=== PATIENT | male | born 1990 | race American Indian/Alaskan Native ===

== ENCOUNTER 2016-08-23 01:06 | Observation (INO) | payer OTHER ==
[2016-08-23] MEDS ORDERED: Vancomycin 1gm in NS 250ml 1 GM/250 ML BAG IVPB STA (05:00)
[2016-08-23] MEDS ORDERED: Oxycodone/Acetaminophen 5/325 mg Tab PO ONE (05:00)
[2016-08-23] MEDS ORDERED: Piperacillin/Tazobact 3.375 gm 100 ML IVPB STA (05:00)
--- NOTE | 2016-08-23 20:30 | CP.PCM.HP ---
<MiltonWilliam - Last Filed: 08/23/16 20:27> History of Present Illness - History of Present Illness History of Present Illness: 26 y/o M with no significant PMH presents to the ED with a 3 day history of right sided chest pain. 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 Pt noticed he had pain on the right side on the lower right chest wall. The pain began to get worse and the patient noticed the pain extending into his right axilla. Pain is made worse by anything touching the site, including his clothes. Pt reports having subjective fever and chills over the last day. He took advil at home for the pain, but it only helped for a few hours before the pain came back. Pt states he was squeezing on the site and it began to express a small amount of pus earlier today. Denies trauma, SOB, N/V/D, headaches, constipation, dysuria, palpitations. PMH: None Surgical Hx: None Family Hx: DM, HTN, Sickle cell trait Social Hx: Denies tobacco and illicit drug use. Occasional alcohol use. Allergies: NKDA Medication: None Present on Admission - Present on Admission Any Indicators Present on Admission: No Review of Systems - Constitutional Constitutional: Chills, Fever. absent: Fatigue, Weakness - EENT Eyes: absent: Blurred Vision, Change in Vision Nose/Mouth/Throat: absent: Nasal Congestion, Nasal Discharge - Cardiovascular Cardiovascular: absent: Chest Pain, Irregular Heart Rhythm - Respiratory Respiratory: absent: Cough, Dyspnea - Gastrointestinal Gastrointestinal: Abdominal Pain. absent: Diarrhea, Vomiting - Genitourinary Genitourinary: absent: Dysuria, Hematuria - Integumentary Integumentary: New Lesions, Skin Pain. absent: Rash - Neurological Neurological: absent: Dizziness, Syncope, Tingling - Hematologic/Lymphatic Hematologic: absent: Easy Bleeding, Easy Bruising Physical Exam - Constitutional Appears: Well, No Acute Distress - Head Exam Head Exam: ATRAUMATIC, NORMAL INSPECTION, NORMOCEPHALIC - Eye Exam Eye Exam: EOMI, Normal appearance - ENT Exam ENT Exam: Mucous Membranes Moist, Normal Exam - Neck Exam Neck exam: Positive for: Normal Inspection. Negative for: Lymphadenopathy - Respiratory Exam Respiratory Exam: Clear to Auscultation Bilateral, NORMAL BREATHING PATTERN. absent: Rales, Rhonchi, Wheezes - Cardiovascular Exam Cardiovascular Exam: RRR, +S1, +S2 - GI/Abdominal Exam GI & Abdominal Exam: Normal Bowel Sounds, Soft Additional comments: Red lesion on the right upper quadrant with erythema extending into the right chest wall and axillary region. No drainage from the erythema - Extremities Exam Extremities exam: Negative for: calf tenderness, pedal edema - Neurological Exam Neurological exam: Alert, CN II-XII Intact, Oriented x3 - Psychiatric Exam Psychiatric exam: Normal Affect, Normal Mood - Skin Skin Exam: Erythema, Intact, Warm Assessment & Plan - Assessment and Plan (Free Text) Plan: 26 y/o M with no significant PMH presents with right abdominal wall abscess and cellulitis. Pt will be admitted to med/surg and placed on empiric abx at this time. Surgery and ID will be consulted. 1. Right abdominal wall abscess and cellulitis Vancomycin and Zoysn Morphine 1 mg q4h Surgery consulted, Dr. Conrad ID consulted, Dr. Nelson 2. PPX Protonix Seen, reviewed, and discussed with attending Milton, PGY-1 <Codi Morgan - Last Filed: 08/24/16 06:45> Attending/Attestation - Attestation I have personally seen and examined this patient.: Yes I have fully participated in the care of the patient.: Yes I have reviewed all pertinent clinical information: Yes Notes (Text): 08/24/16 06:45 Agree with history , physcical examination, assessment and plan.
[2016-08-23] MEDS ORDERED: Morphine 2 mg/ml ISec SC PRN (22:07)
[2016-08-23] MEDS ORDERED: Piperacillin/Tazobact 3.375 gm 100 ML IVPB SCH (22:15)
[2016-08-23] MEDS ORDERED: Sodium Chloride 0.9% 1,000 ML IV SCH (22:15)
[2016-08-23] MEDS ORDERED: Vancomycin 1gm in NS 250ml 1 GM/250 ML BAG IVPB SCH (22:15)
--- NOTE | 2016-08-24 08:17 | CON ---
DATE: 08/23/2016 LOCATION: 517, bed 2, [facility] The patient was seen earlier this morning. REASON FOR CONSULTATION: Abdominal wall abscess. HISTORY OF PRESENT ILLNESS: We have a 26-year-old male with no significant past medical history who comes in complaining of increasing pain along the right side of his abdominal wall. Apparently, ther e was a lesion there that started about a week ago which looked like a pimple, but eventually started getting bigger over the week, and has worsened, and has caused increased pain over the area, as well as radiation of pain even to the right chest area. The patient denies any insect or tick bites, as far as he knows. He denies animal contacts. Does not have any pets at home. He denies specific tra lorena to the area. He denies any travel outside of [place] in the past 3 months. He has not had an y trips to wooded areas. Has not been to beaches or any other bodies of water. He denies fever or c hills. No headache or dizziness. No sore throat. No dysphagia, no odynophagia. No rhinorrhea, no cough. No shortness of breath or chest pain. Aside from the abdominal wall pain, no other parts of the abdomen are painful. No diarrhea. No hematuria, no dysuria, no penile discharge. REVIEW OF SYSTEMS: Is as per history of present illness. PAST MEDICAL HISTORY: The patient does not have any past medical history. FAMILY MEDICAL HISTORY: Is noncontributory. PERSONAL AND SOCIAL HISTORY: The patient denies alcohol abuse or illicit drug use. PHYSICAL EXAMINATION: VITAL SIGNS: The patient is currently afebrile. Heart rate of 90, respiratory rate of 18. HEAD AND NECK: Normocephalic, atraumatic. No cervical lymphadenopathy. No meningismus present. CHEST: Decreased breath sounds bilaterally. No rales noted. HEART: S1 and S2 are normal. ABDOMEN: It is soft. There is about a 4 x 4 cm area on the right side of the abdominal wall with no kiel erythema and some very minute purulent discharge noted, but it is very scant in nature. No blood noted. It is very tender to touch. EXTREMITIES: No peripheral edema noted. Good pulses bilaterally on the distal extremities. LABORATORY DATA: Unfortunately, we are unable to review the labs on the patient because the computer systems and the EMR are down. ASSESSMENT: We have a 26-year-old male with no significant past medical history presenting with prob able abdominal wall abscess, skin structure infection. PLAN: The patient has been started on vancomycin and Zosyn. We will continue this. Pending surgica l recommendations for possible incision and drainage, we have recommended warm compresses for now, an d will re-evaluate tomorrow to see if there is more significant collection of the area so that they c an do incision and drainage. We will also order an HIV test for this patient because of his age, and we will make further recommendations depending on the test results, which will include wound culture s once I and D is done, as well as blood cultures. Damian Elizalde M.D. cc: [id number] TT: 08/23/2016 18:29:32 Confirmation # [id number] Dictation # [id number] bettie
[2016-08-24 16:59] LABS: HEMATOCRIT 40.5 % (42.0-52.0); MEAN CELL VOLUME 83.9 fL (80.0-105.0); MEAN CORPUSCULAR HEMOGLOBIN 28.8 pg (25.0-35.0); MEAN CORPUSCULAR HGB CONC 34.3 g/dl (31.0-37.0); MEAN PLATELET VOLUME 10.1 fl (7.0-11.0); RED CELL DISTRIBUTION WIDTH 13.9 % (11.5-14.5); WHITE BLOOD COUNT 7.9 10^3/ul (4.5-11.0)
[2016-08-27 01:36] LABS: ALB/GLOB RATIO 1.1 (1.1-1.8); ALKALINE PHOSPHATASE 69 U/L (38-133); ALT/SGPT 28 U/L (7-56); AST/SGOT 25 U/L (15-59); BILIRUBIN,TOTAL 0.8 mg/dL (0.2-1.3); BLOOD UREA NITROGEN 10 mg/dL (7-21); CALCIUM 9.3 mg/dL (8.4-10.5); CARBON DIOXIDE 31 mmol/L (21-33); CHLORIDE 100 mmol/L (98-107); GFR AFRICAN-AMERICAN > 60; GLUCOSE,RANDOM 94 mg/dL (70-110); SODIUM 140 mmol/L (132-148); TOTAL PROTEIN 8.3 g/dL (5.8-8.3)
--- NOTE | 2016-09-04 15:06 | CP.PCM.DIS ---
<Baljit Montez - Last Filed: 09/04/16 14:58> Provider - Provider Date of Admission: 08/23/16 04:55 Attending physician: Jacques Hercules MD Consults: ID: [email or web address] Surgery: [place] Time Spent in preparation of Discharge (in minutes): 45 Hospital Course - Lab Results Lab Results: Micro Results 08/23/16 05:45 Blood-Venous Blood Culture - Final NO GROWTH AFTER 5 DAYS 08/23/16 05:45 Blood-Venous Gram Stain - Final TEST NOT PERFORMED 08/23/16 05:45 Blood-Venous Blood Culture - Final NO GROWTH AFTER 5 DAYS 08/23/16 05:45 Blood-Venous Gram Stain - Final TEST NOT PERFORMED Most Recent Lab Values WBC 7.9 10^3/ul (4.5-11.0) 08/23/16 05:45 RBC 4.83 10^6/uL (3.5-6.1) 08/23/16 05:45 Hgb 13.9 gm/dL (14.0-18.0) L 08/23/16 05:45 Hct 40.5 % (42.0-52.0) L 08/23/16 05:45 MCV 83.9 fL (80.0-105.0) 08/23/16 05:45 MCH 28.8 pg (25.0-35.0) 08/23/16 05:45 MCHC 34.3 g/dl (31.0-37.0) 08/23/16 05:45 RDW 13.9 % (11.5-14.5) 08/23/16 05:45 Plt Count 262 10^3/uL (120.0-450.0) 08/23/16 05:45 MPV 10.1 fl (7.0-11.0) 08/23/16 05:45 Sodium 140 mmol/L (132-148) 08/23/16 05:45 Potassium 4.0 mmol/L (3.6-5.0) 08/23/16 05:45 Chloride 100 mmol/L (98-107) 08/23/16 05:45 Carbon Dioxide 31 mmol/L (21-33) 08/23/16 05:45 Anion Gap 13 (10-20) 08/23/16 05:45 BUN 10 mg/dL (7-21) 08/23/16 05:45 Creatinine 1.0 mg/dL (0.5-1.4) 08/23/16 05:45 Est GFR ( Amer) > 60 08/23/16 05:45 Est GFR (Non-Af Amer) > 60 08/23/16 05:45 Random Glucose 94 mg/dL (70-110) 08/23/16 05:45 Calcium 9.3 mg/dL (8.4-10.5) 08/23/16 05:45 Total Bilirubin 0.8 mg/dL (0.2-1.3) 08/23/16 05:45 AST 25 U/L (15-59) 08/23/16 05:45 ALT 28 U/L (7-56) 08/23/16 05:45 Alkaline Phosphatase 69 U/L (38-133) 08/23/16 05:45 Total Protein 8.3 g/dL (5.8-8.3) 08/23/16 05:45 Albumin 4.3 g/dL (3.0-4.8) 08/23/16 05:45 Globulin 4.0 gm/dL 08/23/16 05:45 Albumin/Globulin Ratio 1.1 (1.1-1.8) 08/23/16 05:45 - Hospital Course Hospital Course: Upon Admission: 26yo M with no significant PMHx here for evaluation of right abdominal wall abscess and cellulitis. Patient was afebrile, no leukocytosis. 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 Surgery was consulted and recommended warm compress and out -patient follow up. No plans for any acute surgical intervention. ID was consulted who recommended discharge on PO abx and close out-patient follow up. Patient understands and agrees with plan. 1. Abdominal wall abscess/cellulitis; PO abx Upon Discharge: Patient was cleared for discharge as per Dr. Hercules 1. Follow up with your PMD in 3 days 2. Follow up with Dr. Conrad, surgery, in 1 week. Call for appointment 3. Take oral antibiotics as directed to completion. Discharge Exam - Head Exam Head Exam: ATRAUMATIC, NORMAL INSPECTION, NORMOCEPHALIC - Eye Exam Eye Exam: EOMI, Normal appearance, PERRL. absent: Scleral icterus Pupil Exam: PERRL - Respiratory Exam Respiratory Exam: Clear to PA & Lateral, NORMAL BREATHING PATTERN. absent: Rales, Rhonchi, Wheezes - Cardiovascular Exam Cardiovascular Exam: RRR, +S1, +S2. absent: JVD - GI/Abdominal Exam GI & Abdominal Exam: Soft. absent: Distended, Guarding, Hernia, Tenderness - Extremities Exam Extremities exam: normal inspection - Neurological Exam Neurological exam: Alert, Oriented x3 - Psychiatric Exam Psychiatric exam: Normal Affect, Normal Mood - Skin Additional comments: Right upper abdominal skin red lesion with erythema and mild fluctuance. No discharge, no drainage Discharge Plan - Follow Up Plan Condition: GOOD Disposition: HOME/ ROUTINE <Jacques Hercules MD - Last Filed: 09/04/16 16:35> Provider - Provider Date of Admission: 08/23/16 04:55 Attending physician: Jacques Hercules MD Hospital Course - Lab Results Lab Results: Micro Results 08/23/16 05:45 Blood-Venous Blood Culture - Final NO GROWTH AFTER 5 DAYS 08/23/16 05:45 Blood-Venous Gram Stain - Final TEST NOT PERFORMED 08/23/16 05:45 Blood-Venous Blood Culture - Final NO GROWTH AFTER 5 DAYS 08/23/16 05:45 Blood-Venous Gram Stain - Final TEST NOT PERFORMED Most Recent Lab Values WBC 7.9 10^3/ul (4.5-11.0) 08/23/16 05:45 RBC 4.83 10^6/uL (3.5-6.1) 08/23/16 05:45 Hgb 13.9 gm/dL (14.0-18.0) L 08/23/16 05:45 Hct 40.5 % (42.0-52.0) L 08/23/16 05:45 MCV 83.9 fL (80.0-105.0) 08/23/16 05:45 MCH 28.8 pg (25.0-35.0) 08/23/16 05:45 MCHC 34.3 g/dl (31.0-37.0) 08/23/16 05:45 RDW 13.9 % (11.5-14.5) 08/23/16 05:45 Plt Count 262 10^3/uL (120.0-450.0) 08/23/16 05:45 MPV 10.1 fl (7.0-11.0) 08/23/16 05:45 Sodium 140 mmol/L (132-148) 08/23/16 05:45 Potassium 4.0 mmol/L (3.6-5.0) 08/23/16 05:45 Chloride 100 mmol/L (98-107) 08/23/16 05:45 Carbon Dioxide 31 mmol/L (21-33) 08/23/16 05:45 Anion Gap 13 (10-20) 08/23/16 05:45 BUN 10 mg/dL (7-21) 08/23/16 05:45 Creatinine 1.0 mg/dL (0.5-1.4) 08/23/16 05:45 Est GFR ( Amer) > 60 08/23/16 05:45 Est GFR (Non-Af Amer) > 60 08/23/16 05:45 Random Glucose 94 mg/dL (70-110) 08/23/16 05:45 Calcium 9.3 mg/dL (8.4-10.5) 08/23/16 05:45 Total Bilirubin 0.8 mg/dL (0.2-1.3) 08/23/16 05:45 AST 25 U/L (15-59) 08/23/16 05:45 ALT 28 U/L (7-56) 08/23/16 05:45 Alkaline Phosphatase 69 U/L (38-133) 08/23/16 05:45 Total Protein 8.3 g/dL (5.8-8.3) 08/23/16 05:45 Albumin 4.3 g/dL (3.0-4.8) 08/23/16 05:45 Globulin 4.0 gm/dL 08/23/16 05:45 Albumin/Globulin Ratio 1.1 (1.1-1.8) 08/23/16 05:45 Attending/Attestation - Attestation I have personally seen and examined this patient.: Yes I have fully participated in the care of the patient.: Yes I have reviewed all pertinent clinical information, including history, physical exam and plan: Yes Notes (Text): Patient was seen and examined with medical corps officer .Agreed with resident assessment and plan. Patient was evaluated by surgery, no need for I/D as lesion is very small.Patient was started on oral antibiotics and will be discharged home and will follow up with [facility] [place] [facility]. Management plan was discussed in detail with patient Education was provided.
== END 2016-08-23 17:54 | disposition home or self-care (01) ==
LOC: ED 01:06 → INTOOBSV 04:55 → ERH 04:55 → 5RSO 08:30
PROVIDERS: ADMIT Internal Medicine; ATTEND Internal Medicine
DX: L02.211 Cutaneous abscess of abdominal wall (principal); L03.818 Cellulitis of other sites; Z82.49 Family history of ischemic heart disease and other diseases of the circulatory system; Z83.3 Family history of diabetes mellitus; Z83.2 Family history of diseases of the blood and blood-forming organs and certain disorders involving the immune mechanism
CPT/HCPCS: 36415; 80053; 85027; 87040; 99281; G0378